=== PATIENT | female | born 1945 | race Caucasian/White ===

== ENCOUNTER 2016-07-25 11:34 | Emergency (ER) | payer OTHER, BC ==
[~2016-07-25] VITALS: Ht 162.6 cm; Wt 64.8 kg
[~2016-07-25 11:34] MED LIST: ADVIL200 MG PO; CIPROFLOXACIN500 M1 PO; DAILY VALUE1 EACH PO; DOXYCYCLINE MO100 MG PO; ERGOCALCIF50000 UNIT PO; Ecotrin PO; KEFLEX500 MG PO; LEVOTHYROXINE88 MCG PO; Levothroid,Synthroid PO; OXAYDO5 MG PO; PHENAZOPYRIDIN200 MG PO; TAMSULOSIN HCL0.4 MG PO; VANTIN100 MG PO; ZANTAC150 MG PO; ZOFRAN8 MG PO; Zithromax PO
[2016-07-25] MEDS ORDERED: NAPROXEN500 MG PO (13:06)
[2016-07-25 13:34] VITALS: BP 138/64
== END 2016-07-25 13:36 | disposition home or self-care (01) ==
LOC: EME 11:34
DX: S40.021A Contusion of right upper arm, initial encounter (principal); W01.0XXA Fall on same level from slipping, tripping and stumbling without subsequent striking against object, initial encounter; Y93.01 Activity, walking, marching and hiking; E03.9 Hypothyroidism, unspecified; K21.9 Gastro-esophageal reflux disease without esophagitis
CPT/HCPCS: 73030; 73060; 99281; 99284; J3010; J7120